=== PATIENT | female | born 1995 | race Caucasian/White ===

== ENCOUNTER 2017-07-13 16:40 | Outpatient (CLI) | payer OTHER | END 2017-07-13 18:59 | disposition home or self-care (01) | LOC: OBT 16:40 → L-D 16:41 → OBT 18:59 | DX: O13.2 Gestational [pregnancy-induced] hypertension without significant proteinuria, second trimester (principal); Z3A.23 23 weeks gestation of pregnancy | CPT/HCPCS: 76815 ==

== ENCOUNTER 2017-10-10 13:49 | Outpatient (CLI) | payer OTHER ==
[2017-10-10 18:00] LABS: RUPTURE FETAL MEMBRANES NEGATIVE (NEGATIVE)
== END 2017-10-10 18:22 | disposition home or self-care (01) ==
LOC: OBT 13:49 → L-D 13:49 → OBT 18:22
DX: O09.33 Supervision of pregnancy with insufficient antenatal care, third trimester (principal); O40.3XX0 Polyhydramnios, third trimester, not applicable or unspecified; O99.013 Anemia complicating pregnancy, third trimester; D50.9 Iron deficiency anemia, unspecified; O32.1XX0 Maternal care for breech presentation, not applicable or unspecified; O09.293 Supervision of pregnancy with other poor reproductive or obstetric history, third trimester; Z3A.39 39 weeks gestation of pregnancy
CPT/HCPCS: 76815; 76818; 84112

== ENCOUNTER 2017-10-14 15:32 | Outpatient (CLI) | payer OTHER ==
[2017-10-14 17:11] LABS: RUPTURE FETAL MEMBRANES NEGATIVE (NEGATIVE)
[2017-10-14 17:48] LABS: URINE BLOOD (Dip) POC Trace-lysed (NEGATIVE); URINE GLUCOSE (Dip) POC Negative (NEGATIVE); URINE KETONES (Dip) POC Negative (NEGATIVE); URINE LEUKOCYTE EST (Dip) POC 1+ (NEGATIVE); URINE NITRITE (Dip) POC Negative (NEGATIVE); URINE TOTAL PROTEIN POC 1+ (NEGATIVE)
[2017-10-14 20:25] LABS: ADD UMIC YES; UR ASCORBIC ACID NEGATIVE (NEGATIVE); UR BILIRUBIN (Dip) NEGATIVE (NEGATIVE); UR BLOOD (Dip) 1+ mg/dL (NEGATIVE); UR CLARITY SLIGHTLY CLOUDY (CLEAR); UR COLOR YELLOW (YELLOW); UR GLUCOSE (Dip) NEGATIVE (NEGATIVE); UR KETONES (Dip) NEGATIVE (NEGATIVE); UR LEUKOCYTE ESTERASE (Dip) 3+ Leu/ul (NEGATIVE); UR MUCUS MANY /HPF (NONE SEEN); UR NITRITE (Dip) NEGATIVE (NEGATIVE); UR RBC 12 /HPF (0-5); UR SQUAMOUS EPITHELIAL CELL FEW /HPF (FEW); UR TOTAL PROTEIN (Dip) 1+ mg/dl (NEGATIVE); UR UROBILINOGEN (Dip) NEGATIVE (NEGATIVE); UR WBC 57 /HPF (0-5)
== END 2017-10-14 18:15 | disposition home or self-care (01) ==
LOC: OBT 15:32 → L-D 15:33 → OBT 18:15
DX: O42.913 Preterm premature rupture of membranes, unspecified as to length of time between rupture and onset of labor, third trimester (principal); Z3A.36 36 weeks gestation of pregnancy
CPT/HCPCS: 76818; 81001; 81003; 84112

== ENCOUNTER 2017-10-23 15:27 | Outpatient (CLI) | payer OTHER | END 2017-10-23 20:10 | disposition home or self-care (01) | LOC: OBT 15:27 → L-D 15:29 → OBT 20:10 | DX: O26.893 Other specified pregnancy related conditions, third trimester (principal); R10.2 Pelvic and perineal pain; Z3A.38 38 weeks gestation of pregnancy | CPT/HCPCS: 76815; 76818 ==

== ENCOUNTER 2017-10-28 01:13 | Outpatient (CLI) | payer OTHER | END 2017-10-28 04:25 | disposition home or self-care (01) | LOC: OBT 01:13 → L-D 01:13 → OBT 04:25 | DX: O62.9 Abnormality of forces of labor, unspecified (principal); Z3A.38 38 weeks gestation of pregnancy | CPT/HCPCS: 76815 ==

== ENCOUNTER 2017-11-06 01:01 | Inpatient (IN) | payer OTHER ==
[2017-11-06] MEDS ORDERED: LIDOCAINE 1% (MPF) 30 ML INJ INJ (02:00)
[2017-11-06] MEDS ORDERED: CARBOPROST 250 MCG INJ IM (02:00)
[2017-11-06] MEDS ORDERED: IBUPROFEN 600 MG TAB PO (02:00)
[2017-11-06] MEDS ORDERED: OXYTOCIN 30 UNITS/LR 500 ML IV ×3 (02:00)
[2017-11-06] MEDS: LACTATED RINGER'S 1,000 ML IV* ×5 (02:59→23:33)
[2017-11-06] MEDS: PENICILLIN G K 5,000,000 UNITS in DEXTROSE 5% 100 ML IVPB (03:06)
[2017-11-06 03:31] LABS: ADD MAN DIFF? NO
[2017-11-06 03:44] LABS: WHITE BLOOD COUNT 11.6 10^3/ul (4.8-10.8)
[2017-11-06 03:44] LABS: ABNORMAL IP MESSAGE 1; BASOPHILS % 0.3 % (0.0-2.0); EOSINOPHILS # 0.2 10^3/ul (0.0-0.5); EOSINOPHILS % 1.5 % (0.0-7.0); HEMATOCRIT 28.8 % (37.0-47.0); HEMOGLOBIN 8.2 g/dl (12.0-16.0); LYMPHOCYTES # 2.6 10^3/ul (0.8-2.9); LYMPHOCYTES % 22.1 % (15.0-51.0); MEAN CORPUSCULAR HEMOGLOBIN 20.1 pg (29.0-33.0); MEAN CORPUSCULAR HGB CONC 28.5 g/dl (32.0-37.0); MEAN CORPUSCULAR VOLUME 70.6 fl (82.0-101.0); MEAN PLATELET VOLUME 11.4 fl (7.4-10.4); MONOCYTE # 1.2 10^3/ul (0.3-0.9); NEUTROPHIL # 7.5 10^3/ul (1.6-7.5); NEUTROPHILS % 64.9 % (39.0-77.0); NUCLEATED RED BLOOD CELLS% 0.3 /100WBC (0.0-0.0); PLATELET COUNT 304 10^3/UL (140-415); RED BLOOD COUNT 4.08 10^6/ul (4.20-5.40); RED CELL DISTRIBUTION WIDTH 20.1 % (11.5-14.5)
[2017-11-06] MEDS: BUTORPHANOL 2 MG INJ IV (03:56)
[2017-11-06 04:16] LABS: PROTIME 13.3 Sec (11.9-14.9)
[2017-11-06 04:44] LABS: POSITIVE DIFF @See below
[2017-11-06 05:19] LABS: ADD UMIC YES; UR AMORPHOUS CRYSTAL FEW /HPF (NONE SEEN); UR ASCORBIC ACID NEGATIVE (NEGATIVE); UR BILIRUBIN (Dip) NEGATIVE (NEGATIVE); UR BLOOD (Dip) 1+ mg/dL (NEGATIVE); UR CLARITY TURBID (CLEAR); UR COLOR YELLOW (YELLOW); UR GLUCOSE (Dip) NEGATIVE (NEGATIVE); UR KETONES (Dip) NEGATIVE (NEGATIVE); UR LEUKOCYTE ESTERASE (Dip) 3+ Leu/ul (NEGATIVE); UR NITRITE (Dip) NEGATIVE (NEGATIVE); UR RBC 8 /HPF (0-5); UR SPECIFIC GRAVITY (Dip) 1.015 (1.003-1.030); UR SQUAMOUS EPITHELIAL CELL FEW /HPF (FEW); UR TOTAL PROTEIN (Dip) NEGATIVE (NEGATIVE); UR UROBILINOGEN (Dip) NEGATIVE (NEGATIVE); UR WBC 19 /HPF (0-5)
[2017-11-06 05:54] LABS: AMPHETAMINE/METHAMPHETAMINE NEGATIVE (NEGATIVE); BARBITURATES NEGATIVE (NEGATIVE); BENZODIAZEPINES NEGATIVE (NEGATIVE); CANNABINOIDS NEGATIVE (NEGATIVE); COCAINE NEGATIVE (NEGATIVE); OPIATES NEGATIVE (NEGATIVE)
[2017-11-06 06:07] LABS: HEPATITIS B SURFACE ANTIGEN NEGATIVE (NEGATIVE)
[2017-11-06 06:18] LABS: HIV 1&2 ANTIBODY NEGATIVE (NEGATIVE)
[2017-11-06] MEDS: PENICILLIN G K 2,500,000 UNITS in DEXTROSE 5% 50 ML IVPB ×6 (06:58→21:46)
[2017-11-06 07:24] LABS: ALANINE AMINOTRANSFERASE 18 IU/L (13-69); ALBUMIN 3.6 g/dl (3.3-4.9); ALBUMIN/GLOBULIN RATIO 1.05; ALKALINE PHOSPHATASE 130 IU/L (42-121); ANION GAP 16 (8-16); ASPARTATE AMINO TRANSFERASE 17 IU/L (15-46); BILIRUBIN,INDIRECT 0.2 mg/dl (0-1.1); BILIRUBIN,TOTAL 0.2 mg/dl (0.2-1.3); BLOOD UREA NITROGEN 9 mg/dl (7-20); CALCIUM 9.7 mg/dl (8.4-10.2); CARBON DIOXIDE 19 mmol/L (21-31); CHLORIDE 111 mmol/L (97-110); CREATININE 0.51 mg/dl (0.44-1.00); GLUCOSE 84 mg/dl (70-220); POTASSIUM 4.2 mmol/L (3.5-5.1); SODIUM 142 mmol/L (135-144)
[2017-11-06] MEDS: MISOPROSTOL 25 MCG CAPSULE PO ×4 (10:32→22:53)
[2017-11-06] MEDS ORDERED: MISOPROSTOL 25 MCG CAPSULE PO (13:00)
[2017-11-06 15:10] LABS: RAPID PLASMA REAGIN REACTIVE (NR)
[2017-11-06 15:11] LABS: RPR TITER 1:16 (0)
[2017-11-06] MEDS ORDERED: FENTAnyl 2MCG/ML-ROPIV 0.2% 100 ML (17:21)
[2017-11-06] MEDS ORDERED: NALOXONE (0.4 MG/ML) INJ IV (19:00)
[2017-11-06] MEDS: FENTAnyl 2MCG/ML-ROPIV 0.2% 100 ML BAG EPI (19:08)
[2017-11-07] MEDS: MISOPROSTOL 25 MCG CAPSULE PO (01:00)
[2017-11-07] MEDS: OXYTOCIN 30 UNITS/LR 500 ML IV (01:04)
[2017-11-07 01:29] LABS: ADD UMIC YES; UR ASCORBIC ACID NEGATIVE (NEGATIVE); UR BILIRUBIN (Dip) NEGATIVE (NEGATIVE); UR BLOOD (Dip) NEGATIVE (NEGATIVE); UR CLARITY CLEAR (CLEAR); UR COLOR YELLOW (YELLOW); UR GLUCOSE (Dip) NEGATIVE (NEGATIVE); UR KETONES (Dip) NEGATIVE (NEGATIVE); UR LEUKOCYTE ESTERASE (Dip) TRACE Leu/ul (NEGATIVE); UR MUCUS FEW /HPF (NONE SEEN); UR NITRITE (Dip) NEGATIVE (NEGATIVE); UR RBC 2 /HPF (0-5); UR SPECIFIC GRAVITY (Dip) 1.015 (1.003-1.030); UR TOTAL PROTEIN (Dip) NEGATIVE (NEGATIVE); UR UROBILINOGEN (Dip) NEGATIVE (NEGATIVE); UR WBC 7 /HPF (0-5)
[2017-11-07] MEDS: PENICILLIN G K 2,500,000 UNITS in DEXTROSE 5% 50 ML IVPB ×5 (02:01→21:10)
[2017-11-07] MEDS: FENTAnyl 2MCG/ML-ROPIV 0.2% 100 ML BAG EPI ×4 (02:15→23:52)
[2017-11-07 03:40] LABS: IRON 26 ug/dl (35-150)
[2017-11-07 03:50] LABS: % IRON SATURATION 6 % SAT (22-52); TOTAL IRON BINDING CAPACITY 423 ug/dl (241-421)
[2017-11-07] MEDS: LACTATED RINGER'S 1,000 ML IV* ×2 (09:38→19:24)
[2017-11-08] MEDS: PENICILLIN G K 2,500,000 UNITS in DEXTROSE 5% 50 ML IVPB ×7 (00:30→20:42)
[2017-11-08] MEDS: LACTATED RINGER'S 1,000 ML IV* ×2 (03:25→13:18)
[2017-11-08] MEDS: OXYTOCIN 30 UNITS/LR 500 ML IV (03:31)
[2017-11-08] MEDS: FENTAnyl 2MCG/ML-ROPIV 0.2% 100 ML BAG EPI ×3 (09:44→20:43)
[2017-11-08 16:51] LABS: FLUORESCENT TREPONEMAL AB REACTIVE (NON-REACTIVE)
[2017-11-08] MEDS: MISOPROSTOL 25 MCG CAPSULE PO (20:42)
[2017-11-09] MEDS: LACTATED RINGER'S 1,000 ML IV* ×3 (00:20→18:30)
[2017-11-09] MEDS: PENICILLIN G K 2,500,000 UNITS in DEXTROSE 5% 50 ML IVPB (01:00)
[2017-11-09] MEDS: MISOPROSTOL 25 MCG CAPSULE PO ×4 (01:08→13:00)
[2017-11-09] MEDS: NITROFURANTOIN (SR) 100 MG CAP PO ×3 (01:41→21:39)
[2017-11-09] MEDS: FENTAnyl 2MCG/ML-ROPIV 0.2% 100 ML BAG EPI ×4 (01:47→19:18)
[2017-11-09] MEDS: AMPICILLIN 2 GM/NS (PMX) 100 ML IVPB (12:18)
[2017-11-09] MEDS: OXYTOCIN 30 UNITS/LR 500 ML IV ×2 (15:32→22:48)
[2017-11-09] MEDS: AMPICILLIN 1 GM/NS (PMX) 50 ML IVPB ×2 (16:24→20:21)
[2017-11-09] MEDS: METHYLERGONOVINE 0.2 MG INJ IM (22:17)
[2017-11-09] MEDS: MISOPROSTOL 200 MCG TAB PR (22:25)
[2017-11-10] MEDS ORDERED: LACTATED RINGER'S 1,000 ML IV* (00:16)
[2017-11-10] MEDS ORDERED: CARBOPROST 250 MCG INJ IM (00:30)
[2017-11-10] MEDS ORDERED: METHYLERGONOVINE 0.2 MG INJ IM (00:30)
[2017-11-10] MEDS ORDERED: MISOPROSTOL 200 MCG TAB PR (00:30)
[2017-11-10] MEDS ORDERED: OXYTOCIN 30 UNITS/LR 500 ML IV (00:30)
[2017-11-10] MEDS: HYDROCODONE/APAP (5/325) TAB PO ×5 (00:56→21:24)
[2017-11-10] MEDS: OXYTOCIN 30 UNITS/LR 500 ML IV ×2 (03:18→19:00)
[2017-11-10] MEDS: IBUPROFEN 600 MG TAB PO ×4 (05:19→23:50)
[2017-11-10 07:48] LABS: ADD MAN DIFF? NO
[2017-11-10 07:54] LABS: WHITE BLOOD COUNT 14.2 10^3/ul (4.8-10.8)
[2017-11-10 07:54] LABS: ABNORMAL IP MESSAGE 1; BASOPHILS % 0.2 % (0.0-2.0); EOSINOPHILS # 0.1 10^3/ul (0.0-0.5); EOSINOPHILS % 0.7 % (0.0-7.0); HEMATOCRIT 25.3 % (37.0-47.0); HEMOGLOBIN 7.2 g/dl (12.0-16.0); LYMPHOCYTES # 2.3 10^3/ul (0.8-2.9); LYMPHOCYTES % 16.3 % (15.0-51.0); MEAN CORPUSCULAR HEMOGLOBIN 20.1 pg (29.0-33.0); MEAN CORPUSCULAR HGB CONC 28.5 g/dl (32.0-37.0); MEAN CORPUSCULAR VOLUME 70.5 fl (82.0-101.0); MEAN PLATELET VOLUME 11.3 fl (7.4-10.4); MONOCYTE # 1.2 10^3/ul (0.3-0.9); MONOCYTES % 8.8 % (0.0-11.0); NEUTROPHIL # 10.4 10^3/ul (1.6-7.5); NEUTROPHILS % 73.4 % (39.0-77.0); PLATELET COUNT 254 10^3/UL (140-415); RED BLOOD COUNT 3.59 10^6/ul (4.20-5.40); RED CELL DISTRIBUTION WIDTH 19.9 % (11.5-14.5)
[2017-11-10 07:55] LABS: POSITIVE DIFF @See below
[2017-11-10] MEDS: LANOLIN 7 GM TUBE TOP (09:17)
[2017-11-11] MEDS: IBUPROFEN 600 MG TAB PO ×3 (05:37→17:27)
[2017-11-11 06:54] LABS: ADD MAN DIFF? NO
[2017-11-11 07:11] LABS: WHITE BLOOD COUNT 9.1 10^3/ul (4.8-10.8)
[2017-11-11 07:11] LABS: ABNORMAL IP MESSAGE 1; BASOPHILS % 0.4 % (0.0-2.0); EOSINOPHILS # 0.3 10^3/ul (0.0-0.5); EOSINOPHILS % 3.4 % (0.0-7.0); HEMATOCRIT 24.2 % (37.0-47.0); LYMPHOCYTES # 2.6 10^3/ul (0.8-2.9); LYMPHOCYTES % 28.5 % (15.0-51.0); MEAN CORPUSCULAR HEMOGLOBIN 20.5 pg (29.0-33.0); MEAN CORPUSCULAR HGB CONC 28.5 g/dl (32.0-37.0); MEAN CORPUSCULAR VOLUME 71.8 fl (82.0-101.0); MEAN PLATELET VOLUME 12.2 fl (7.4-10.4); MONOCYTE # 0.8 10^3/ul (0.3-0.9); MONOCYTES % 8.4 % (0.0-11.0); NEUTROPHIL # 5.3 10^3/ul (1.6-7.5); NEUTROPHILS % 58.6 % (39.0-77.0); PLATELET COUNT 241 10^3/UL (140-415); RED BLOOD COUNT 3.37 10^6/ul (4.20-5.40)
[2017-11-11 07:34] LABS: HEMOGLOBIN 6.9 g/dl (12.0-16.0); POSITIVE DIFF @See below
[2017-11-11] MEDS: CYANOCOBALAMIN 500 MCG TAB PO (10:06)
[2017-11-11] MEDS: MEDROXYPROGESTERONE 150 MG INJ SYG IM (10:10)
[2017-11-11 10:32] LABS: ANISOCYTOSIS 3+ (0-0); BAND NEUTROPHILS #M 0.1 10^3/ul (0.0-0.6); BAND NEUTROPHILS % (M) 2 % (0-4); EOSINOPHILS % (M) 3 % (0-7); ERYTHROBLAST% (NRBC) (M) 1 % (0-0); GIANT THROMBO% (M) 1 % (0-0); LYMPHOCYTES #M 2.3 10^3/ul (0.8-2.9); LYMPHOCYTES % (M) 26 % (15-51); MICROCYTOSIS 3+ (0-0); MONOCYTES % (M) 1 % (0-11); PLATELET ESTIMATE NORMAL; POIKILOCYTOSIS 1+ (0-0); REACTIVE LYMPHOCYTES #M 0.1 10^3/ul (0.0-0.0); REACTIVE LYMPHOCYTES% (M) 2 % (0-0); SEGMENTED NEUTROPHILS (M) % 66 % (39-77); SMUDGE%M 4 % (0-0)
[2017-11-11] MEDS: SOD FERRIC GLUC COMPLX 125 MG in SOD CHLORIDE 0.9% 100 ML IVPB ×2 (11:25→22:11)
[2017-11-11] MEDS: BENZOCAINE 20% 56 ML SPRAY TOP (16:13)
[2017-11-12] MEDS: IBUPROFEN 600 MG TAB PO ×3 (06:00→11:31)
[2017-11-12 10:43] LABS: HEMOGLOBIN 6.8 g/dl (12.0-16.0)
[2017-11-12] MEDS: DIPHTH/TET/ACEL PERTUSS (ADULT) 0.5 ML VIAL IM* (11:28)
[2017-11-12] MEDS: CYANOCOBALAMIN 1000 MCG INJ IM (12:29)
== END 2017-11-12 13:05 | disposition home or self-care (01) | DRG 775 ==
LOC: OBT 01:01 → PP1 11-10 00:48 → L-D 01:02 → OBT 01:39 → L-D 01:30
PROVIDERS: Obstetrics & Gynecology
PROC: 10E0XZZ Delivery of Products of Conception, External Approach (ICD-10-PCS; principal; 2017-11-06)
PROC: 0UQGXZZ Repair Vagina, External Approach (ICD-10-PCS; 2017-11-06)
DX: O99.214 Obesity complicating childbirth (principal); Z68.42 Body mass index [BMI] 45.0-49.9, adult; E66.01 Morbid (severe) obesity due to excess calories; O36.63X0 Maternal care for excessive fetal growth, third trimester, not applicable or unspecified; O71.4 Obstetric high vaginal laceration alone; Z3A.40 40 weeks gestation of pregnancy; Z37.0 Single live birth; O99.013 Anemia complicating pregnancy, third trimester; Z20.2 Contact with and (suspected) exposure to infections with a predominantly sexual mode of transmission
CPT/HCPCS: 62319; 76815; 80053; 80307; 81001; 83540; 85014; 85018; 85025; 85610; 85730; 86592; 86703; 86850; 86900; 86901; 86920; 87086; 87340; 90715

== ENCOUNTER 2018-05-26 20:51 | Emergency (ER) | payer OTHER ==
[2018-05-26] MEDS: KETOROLAC 30 MG INJ IM (23:02)
[2018-05-26] MEDS: DEXAMETHASONE 10 MG/ML 1 ML INJ IM (23:02)
[2018-05-26] MEDS: METHOCARBAMOL 750 MG TAB PO (23:02)
== END 2018-05-27 00:44 | disposition home or self-care (01) ==
LOC: FTE 05-27 00:44
DX: M53.3 Sacrococcygeal disorders, not elsewhere classified (principal)
CPT/HCPCS: 72220; 81025; 96372; 99284-25